=== PATIENT | male | born 1955 | race Caucasian/White ===

== ENCOUNTER 2019-01-31 03:48 | Emergency (ER) | payer SELFPAY ==
[~2019-01-31] VITALS: Ht 157.5 cm; Wt 66.0 kg
[2019-01-31 04:01] VITALS: BP 128/74
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
[2019-01-31 04:27] LABS: BASOPHILS # (AUTO) 0.01 x10^3/uL (0-0.1); BASOPHILS % (AUTO) 0 % (0-1); EOSINOPHILS # (AUTO) 0.06 x10^3/uL (0-0.4); EOSINOPHILS % (AUTO) 1 % (1-7); LYMPHOCYTES # (AUTO) 1.93 x10^3/uL (1-3.4); LYMPHOCYTES % (AUTO) 36 % (22-44); MD NO; MEAN CORPUSCULAR HEMOGLOBIN 33.2 pg (27.5-34.5); MEAN CORPUSCULAR HGB CONC 33.6 g/dL (33.2-36.2); MEAN CORPUSCULAR VOLUME 98.9 fL (81-97); MEAN PLATELET VOLUME 8.3 fL (7.4-10.4); MONOCYTES # (AUTO) 0.32 x10^3/uL (0.2-0.8); MONOCYTES % (AUTO) 6 % (2-9); NEUTROPHILS % (AUTO) 56 % (42-75); PLATELET COUNT 253 x10^3/uL (130-400); RED BLOOD COUNT 4.99 x10^6/uL (4.38-5.82); RED CELL DISTRIBUTION WIDTH 14.8 % (9.4-14.8)
[2019-01-31] MEDS ORDERED: NALOXONE 1 MG/ML, 2ML ONE (04:27)
[2019-01-31] MEDS ORDERED: NALOXONE 1 MG/ML, 2ML IVPush ONE (04:30)
--- NOTE | 2019-01-31 04:32 | NUR ---
PT RESTING IN ROOM. AFTER NARCAN PT IS ABLE TO SAY HIS NAME. VS STABLE. 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 WILL CONTINUE TO MONITOR.
[2019-01-31 04:39] LABS: ALBUMIN 4.4 g/dL (3.4-5.0); ANION GAP 10 mmol/L (5-15); CALCIUM 9.1 mg/dL (8.5-10.1); CHLORIDE 114 mmol/L (98-107)
[2019-01-31 04:46] LABS: ALANINE AMINOTRANSFERASE 36 U/L (12-78); ALKALINE PHOSPHATASE 76 U/L (45-117); BILIRUBIN,TOTAL 0.3 mg/dL (0.2-1.0); CREATININE 0.97 mg/dL (0.7-1.3); TOTAL PROTEIN 8.2 g/dL (6.4-8.2); TROPONIN I < 0.015 ng/mL (0.000-0.045)
[2019-01-31 04:52] LABS: SALICYLATE LEVEL < 1.7 mg/dL (2.8-20.0)
[2019-01-31 04:53] LABS: ACETAMINOPHEN < 2 mcg/mL (10-30)
--- NOTE | 2019-01-31 05:29 | NUR ---
Pt sleeping in [place] at this time; veronica. vss. pt within direct view of main nursing station for observation. equal bilateral rise and fall of chest noted.
--- NOTE | 2019-01-31 05:31 | NUR ---
REPORT GIVEN TO DANAY MILLS
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
== END 2019-01-31 06:39 | disposition home or self-care (01) ==
LOC: ED 06:30
DX: F10.120 Alcohol abuse with intoxication, uncomplicated (principal); R41.0 Disorientation, unspecified; Z72.9 Problem related to lifestyle, unspecified; Z75.9 Unspecified problem related to medical facilities and other health care; Z91.14 Patient's other noncompliance with medication regimen; Z63.8 Other specified problems related to primary support group; Y90.9 Presence of alcohol in blood, level not specified
CPT/HCPCS: 36415; 70450; 71045; 80053; 80307; 80329; 84484; 85025; 93005; 96374; 99284; J2310; G0480